=== PATIENT | male | born 1995 | race Hispanic/Latino ===

== ENCOUNTER 2020-02-09 17:29 | Outpatient (CLI) | payer BC ==
--- NOTE | 2020-02-09 18:54 | RAD ---
Lumbar spine 5 views: HISTORY: Low back pain FINDINGS: No fracture, subluxation, bony destruction, spondylolysis or spondylolisthesis is seen.
== END 2020-02-09 17:30 | disposition home or self-care (01) ==
LOC: SCSRAD 17:29
PROVIDERS: ATTEND Internal Medicine
DX: M54.5 Low back pain (principal)
CPT/HCPCS: 72110